=== PATIENT | male | born 2000 | race Caucasian/White ===

== ENCOUNTER 2020-07-10 19:09 | Emergency (ER) | payer MEDICAID ==
[~2020-07-10] VITALS: Ht 180.3 cm; Wt 45.0 kg
[~2020-07-10 19:09] MED LIST: AMOXICILLIN PO; EPIN0.1516 IM; RIZA10TA27 PO
[2020-07-10] MEDS ORDERED: normal saline 1000ML IV soln IVB ONE (19:25)
[2020-07-10 19:42] LABS: BASOPHILS # (AUTO) 0.1 X10'3 (0-0.2); BASOPHILS % (AUTO) 0.6 % (0-1); EOSINOPHILS % (AUTO) 0.4 % (0-6); HEMATOCRIT 38.6 % (42.0-52.0); LYMPHOCYTES # (AUTO) 1.8 X10'3 (1.1-4.8); LYMPHOCYTES % (AUTO) 18.5 % (21-51); MEAN CORPUSCULAR HEMOGLOBIN 30.7 PG (27.0-31.0); MEAN CORPUSCULAR HGB CONC 33.7 g/dL (33.0-36.5); MONOCYTES # (AUTO) 0.8 X10'3 (0-0.9); MONOCYTES % (AUTO) 8.1 % (2-12); NEUTROPHILS # (AUTO) 7.1 X10'3 (1.8-7.7); NEUTROPHILS % (AUTO) 72.4 % (42-75); PLATELET COUNT 246 X10'3 (140-440); RED BLOOD COUNT 4.24 X10'6 (4.70-6.10); RED CELL DISTRIBUTION WIDTH 13.2 % (11.5-14.5); WHITE BLOOD COUNT 9.8 X10'3 (4.5-11.0)
--- NOTE | 2020-07-10 19:58 | NUR ---
Pt is continuing to be tearful and making confused statements about "everything that is happening now was predicted by this one person! and this one person is attempting to kill me!"
[2020-07-10 19:59] VITALS: BP 149/113
--- NOTE | 2020-07-10 20:00 | NUR ---
Pt is stating "I don't know what the fuck is going on and I feel like I am leaving my body!" Pt is making statements about the virus and drug trafficking.
[2020-07-10 20:01] LABS: ALANINE AMINOTRANSFERASE 31 U/L (12-78); ALBUMIN 4.3 G/DL (3.4-5.0); ALBUMIN/GLOBULIN RATIO 1.5 (1.1-1.5); ALKALINE PHOSPHATASE 52 IU/L (20-180); ANION GAP 11 (8-16); ASPARTATE AMINO TRANSFERASE 24 U/L (10-37); BILIRUBIN,TOTAL 0.7 MG/DL (0.1-1.0); BLOOD UREA NITROGEN 17 MG/DL (7-18); BUN/CREATININE RATIO 19.8 (5.4-32.0); CALCIUM 8.3 MG/DL (8.5-10.1); CHLORIDE 108 MMOL/L (99-107); CREATINE KINASE 220 U/L (39-308); CREATININE 0.86 MG/DL (0.60-1.10); ETHANOL < 0.010 GM/DL (0.0-0.010); GLUCOSE 83 MG/DL (70-104); SODIUM 144 MMOL/L (135-145); TOTAL CARBON DIOXIDE 24.8 MMOL/L (24-32); TOTAL PROTEIN 7.1 G/DL (6.4-8.2); eGFR > 90 ML/MIN
[2020-07-10 20:07] LABS: POTASSIUM 2.8 MMOL/L (3.5-5.1)
[2020-07-10] MEDS ORDERED: potassium Cl 20 mEq SR tablet PO STA (20:21)
[2020-07-10] MEDS ORDERED: potassium Cl 10 mEq/100mL bag IV ONE (20:25)
[2020-07-10] MEDS ORDERED: LORazepam 2 mg/ml vial IV ONE (20:25)
--- NOTE | 2020-07-10 20:38 | NUR ---
He keeps going to his backpack and I entered the room, he didnt want me to see what was inside. Some pills came out. He said that they are tylenol. I did pill identifyer but am not able to identify them. They are red and oval and [id number]. Security will be called.
[2020-07-10 20:40] LABS: CLARITY,URINE SLIGHTLY CLOUDY (Clear); COLOR,URINE YELLOW (Yellow); GLUCOSE, URINE NEGATIVE (Neg); KETONES,URINE TRACE mg/dl (Neg); LEUKOCYTE ESTERASE ,URINE NEGATIVE (Neg); NITRITES, URINE NEGATIVE (Neg); OCCULT BLOOD,URINE LARGE (Neg); PH,URINE 6.5 (4.8-8.0); PROTEIN,URINE NEGATIVE (Neg); UROBILINOGEN,URINE 0.2 E.U/dL (0.2-1.0)
--- NOTE | 2020-07-10 20:41 | NUR ---
Pharmacy was called and she is not able to identify pill either. He has #7 in a baggy.
[2020-07-10 20:43] LABS: UA COLLECTION TYPE CLN CATCH MIDSTREAM
[2020-07-10 20:45] LABS: BACTERIA,URINE NONE SEEN /HPF (Neg); RBC,URINE 0-2 /HPF (0-2); WBC,URINE NONE SEEN /HPF (0-4)
[2020-07-10 20:46] LABS: SQUAMOUS EPITHELIAL CELL,UR FEW /LPF (FEW)
[2020-07-10 20:52] LABS: URINE AMPHETAMINE SCREEN POSITIVE (Neg); URINE BARBITUATE SCREEN NEGATIVE (Neg); URINE BENZODIAZEPINES SCREEN NEGATIVE (Neg); URINE CANNABINOID SCREEN NEGATIVE (Neg); URINE COCAINE SCREEN NEGATIVE (Neg); URINE METHADONE SCREEN NEGATIVE (Neg); URINE OPIATE SCREEN NEGATIVE (Neg); URINE PHENCYCLIDINE SCREEN NEGATIVE (Neg)
--- NOTE | 2020-07-10 21:23 | NUR ---
The pill has been identified as tylenol with caffeine.
--- NOTE | 2020-07-10 21:41 | NUR ---
PATIENT REFUSED ATIVAN ORDERED BY PROVIDER. PATIENT REFUSED IV POTASSIUM STATING THAT IT IS TOO PAINFUL. POTASSIUM SLOWED AND RUNNING WITH NS. PATIENT RECEIVED 40 MEQ ORAL POTASSIUM. PROVIDER AWARE OF PATIENTS REFUSAL TO CONTINUE IV ADMINISTRATION, READY FOR DISCHARGE AT THIS TIME
== END 2020-07-10 21:45 | disposition home or self-care (01) ==
LOC: ER 19:09
DX: T48.3X1A Poisoning by antitussives, accidental (unintentional), initial encounter (principal); F41.0 Panic disorder [episodic paroxysmal anxiety]; F15.10 Other stimulant abuse, uncomplicated; E87.6 Hypokalemia; Z88.8 Allergy status to other drugs, medicaments and biological substances; Z91.030 Bee allergy status; Z79.2 Long term (current) use of antibiotics; Z79.899 Other long term (current) drug therapy; Y92.89 Other specified places as the place of occurrence of the external cause
CPT/HCPCS: 36415; 80053; 80305; 80320; 81001; 82550; 85025; 93005; 96361; 96374; 99284; J3480; J7030; 96360

== ENCOUNTER 2020-08-10 08:15 | Emergency (ER) | payer MEDICAID ==
[~2020-08-10] VITALS: Ht 182.9 cm; Wt 59.1 kg
[2020-08-10 08:17] VITALS: BP 135/95
[2020-08-10] MEDS ORDERED: ibuprofen tablet 400 MG TABLET PO ONE (08:20)
== END 2020-08-10 09:25 | disposition home or self-care (01) ==
LOC: ER 08:15
DX: S93.402A Sprain of unspecified ligament of left ankle, initial encounter (principal); Z88.8 Allergy status to other drugs, medicaments and biological substances; Z79.899 Other long term (current) drug therapy; X58.XXXA Exposure to other specified factors, initial encounter; Y93.89 Activity, other specified; Y92.89 Other specified places as the place of occurrence of the external cause; Y99.8 Other external cause status
CPT/HCPCS: 73610; 99283

== ENCOUNTER 2021-01-19 23:10 | Emergency (ER) | payer MEDICAID ==
[~2021-01-19] VITALS: Ht 182.9 cm; Wt 77.3 kg
[2021-01-20 00:01] LABS: ALANINE AMINOTRANSFERASE 30 U/L (12-78); ALBUMIN 3.8 G/DL (3.4-5.0); ALKALINE PHOSPHATASE 74 IU/L (20-180); ANION GAP 11 (8-16); ASPARTATE AMINO TRANSFERASE 25 U/L (10-37); BILIRUBIN,TOTAL 0.3 MG/DL (0.1-1.0); BLOOD UREA NITROGEN 20 MG/DL (7-18); BUN/CREATININE RATIO 27.4 (5.4-32.0); CALCIUM 9.3 MG/DL (8.5-10.1); CHLORIDE 104 MMOL/L (99-107); CREATININE 0.73 MG/DL (0.60-1.10); GLUCOSE 117 MG/DL (70-104); LIPASE 139 U/L (73-393); POTASSIUM 3.7 MMOL/L (3.5-5.1); SODIUM 140 MMOL/L (135-145); TOTAL CARBON DIOXIDE 25.5 MMOL/L (24-32); TOTAL PROTEIN 7.6 G/DL (6.4-8.2); eGFR > 90 ML/MIN
[2021-01-20 00:06] LABS: BASOPHILS # (AUTO) 0.1 X10'3 (0-0.2); BASOPHILS % (AUTO) 0.7 % (0-1); EOSINOPHILS # (AUTO) 0.1 X10'3 (0-0.9); EOSINOPHILS % (AUTO) 1.4 % (0-6); HEMATOCRIT 39.1 % (42.0-52.0); HEMOGLOBIN 13.1 g/dl (14.0-17.9); LYMPHOCYTES # (AUTO) 1.8 X10'3 (1.1-4.8); LYMPHOCYTES % (AUTO) 19.4 % (21-51); MEAN CORPUSCULAR HGB CONC 33.6 g/dL (33.0-36.5); MEAN CORPUSCULAR VOLUME 89.3 FL (78-98); MEAN PLATELET VOLUME 8.9 FL (7.4-10.4); MONOCYTES # (AUTO) 0.9 X10'3 (0-0.9); NEUTROPHILS # (AUTO) 6.3 X10'3 (1.8-7.7); NEUTROPHILS % (AUTO) 68.5 % (42-75); PLATELET COUNT 297 X10'3 (140-440); RED BLOOD COUNT 4.38 X10'6 (4.70-6.10); RED CELL DISTRIBUTION WIDTH 12.8 % (11.5-14.5); WHITE BLOOD COUNT 9.2 X10'3 (4.5-11.0)
[2021-01-20] MEDS ORDERED: ALBU18HF2 INH (00:15)
[2021-01-20] MEDS ORDERED: ondansetron/PF 4mg/2ml inj IV ONE (00:20)
[2021-01-20] MEDS ORDERED: normal saline 1000ML IV soln IVB ONE (00:20)
--- NOTE | 2021-01-20 01:18 | NUR ---
pt given sandwich and chips and ate them all. Currently lying on the gurney on his right side and sleeping.
--- NOTE | 2021-01-20 01:20 | NUR ---
Dr. Moreno aware Pt has not provided urine. States ok to DC w/out urine sample.
--- NOTE | 2021-01-20 01:20 | NUR ---
Per Dr. Moreno, Pt does need the ordered zofran or liter of NS as he has tolerate the food and had no emesis and appears comfortable.
--- NOTE | 2021-01-20 01:35 | NUR ---
PT PROVIDED SNACKS, OFFERED [facility] BUT WOULD NOT TELL ME A PLACE TO BE TRANSPORTED TO FOR DISCHARGE. PT IS IN POSESSION OF APPROPRIATE CLOTHING AND HAS A TARP. STATES HE IS HOMELESS. PT SAT UP IN THE BED FOR ME BUT WOULD NOT OPEN HIS EYES AND WOULD NOT GET UP TO LEAVE FOR DC OR GET UP TO START GETTING DRESSED. ASKED MULTIPLE TIMES TO GET DRESSED AND PT WOULD NOT MOVE. SECURITY AT BEDSIDE TO ASSIST AND PT DID FOLLOW DIRECTIONS AND GOT UP AND DRESSED AND LEFT THE ER WITH ESCORT OF SECURITY, ,BUT WITHOUT INCIDENCE.
[2021-01-20 01:40] VITALS: BP 108/66
== END 2021-01-20 01:52 | disposition home or self-care (01) ==
LOC: ER 23:10
DX: R10.31 Right lower quadrant pain (principal); F15.10 Other stimulant abuse, uncomplicated; R11.0 Nausea; F11.10 Opioid abuse, uncomplicated; F17.200 Nicotine dependence, unspecified, uncomplicated; Z88.8 Allergy status to other drugs, medicaments and biological substances; Z91.030 Bee allergy status; Z79.899 Other long term (current) drug therapy
CPT/HCPCS: 36415; 74176; 80053; 83690; 85025; 99284

== ENCOUNTER 2021-01-27 09:14 | Emergency (ER) | payer MEDICAID ==
[~2021-01-27] VITALS: Ht 172.7 cm; Wt 63.6 kg
[2021-01-27 09:55] VITALS: BP 117/75
[2021-01-27] MEDS ORDERED: CEPH250T PO (10:43)
== END 2021-01-27 11:46 | disposition home or self-care (01) ==
LOC: ER 09:15
DX: L03.116 Cellulitis of left lower limb (principal); M79.672 Pain in left foot; F15.90 Other stimulant use, unspecified, uncomplicated; F11.90 Opioid use, unspecified, uncomplicated; Z59.0 Homelessness; Z88.8 Allergy status to other drugs, medicaments and biological substances; Z91.030 Bee allergy status; Z79.2 Long term (current) use of antibiotics; Z79.899 Other long term (current) drug therapy
CPT/HCPCS: 73620; 99283

== ENCOUNTER 2021-01-30 00:16 | Emergency (ER) | payer MEDICAID ==
[~2021-01-30] VITALS: Ht 180.3 cm; Wt 61.4 kg
[~2021-01-30 00:16] MED LIST changes: +CEPH250T PO
[2021-01-30 00:35] VITALS: BP 124/79
--- NOTE | 2021-01-30 01:48 | NUR ---
HX: from [place]. States his mom uses heroin. States his dad did something and is away (assuming senior living). He has siblings but they do not talk to him because he thinks dad is innocent. He is on the streets. He has only an 11 grade education. He talks to one of his sisters. He thinks he should get disability but hasn't seen any money this whole winter.
[2021-01-30] MEDS ORDERED: CEPH250T PO (02:07)
[2021-01-30] MEDS ORDERED: cephalexin 250mg capsule PO ONE (02:10)
[2021-01-30] MEDS ORDERED: ondansetron 4mg rapidly disintigrating tab PO ONE (02:10)
[2021-01-30] MEDS ORDERED: acetaminophen 325mg tablet PO ONE (02:10)
== END 2021-01-30 02:28 | disposition home or self-care (01) ==
LOC: ER 00:17
DX: L03.116 Cellulitis of left lower limb (principal); M79.672 Pain in left foot; F15.90 Other stimulant use, unspecified, uncomplicated; F11.90 Opioid use, unspecified, uncomplicated; Z59.0 Homelessness; Z88.8 Allergy status to other drugs, medicaments and biological substances; Z91.030 Bee allergy status; Z79.2 Long term (current) use of antibiotics; Z79.899 Other long term (current) drug therapy
CPT/HCPCS: 99284

== ENCOUNTER 2021-02-01 02:02 | Emergency (ER) | payer MEDICAID ==
[~2021-02-01] VITALS: Ht 177.8 cm; Wt 56.8 kg
--- NOTE | 2021-02-01 03:17 | NUR ---
pt sleepy and unable to speak clearly. Unable to communicate for assessment.
[2021-02-01] MEDS: OLANZapine 5mg rapidly disint. tablet PO ONE ×2 (04:16→04:26)
[2021-02-01] MEDS ORDERED: haloperidol lactate 5mg/ml inj IM ONE ×2 (04:20→04:40)
[2021-02-01] MEDS ORDERED: haloperidol lactate 5mg/ml inj ONE (04:21)
--- NOTE | 2021-02-01 04:32 | NUR ---
blas currently. Saying staff is trying to poison him. He had me throw away his sandwich earlier. He just picked a scab from his left cheek. Put a bandaide on it. Was able to get his bag of stuff away from him. He still has his cell phone, the battery is .
[2021-02-01 05:43] LABS: BASOPHILS # (AUTO) 0.1 X10'3 (0-0.2); EOSINOPHILS # (AUTO) 0.3 X10'3 (0-0.9); EOSINOPHILS % (AUTO) 2.5 % (0-6); HEMATOCRIT 36.7 % (42.0-52.0); HEMOGLOBIN 12.2 g/dl (14.0-17.9); LYMPHOCYTES # (AUTO) 1.4 X10'3 (1.1-4.8); LYMPHOCYTES % (AUTO) 14.2 % (21-51); MEAN CORPUSCULAR HGB CONC 33.1 g/dL (33.0-36.5); MEAN CORPUSCULAR VOLUME 90.6 FL (78-98); MEAN PLATELET VOLUME 8.6 FL (7.4-10.4); MONOCYTES # (AUTO) 0.8 X10'3 (0-0.9); NEUTROPHILS # (AUTO) 7.5 X10'3 (1.8-7.7); NEUTROPHILS % (AUTO) 74.3 % (42-75); PLATELET COUNT 336 X10'3 (140-440); RED BLOOD COUNT 4.05 X10'6 (4.70-6.10); WHITE BLOOD COUNT 10.1 X10'3 (4.5-11.0)
[2021-02-01 06:05] LABS: ALANINE AMINOTRANSFERASE 32 U/L (12-78); ALBUMIN 3.9 G/DL (3.4-5.0); ALKALINE PHOSPHATASE 74 IU/L (20-180); ANION GAP 11 (8-16); ASPARTATE AMINO TRANSFERASE 26 U/L (10-37); BILIRUBIN,TOTAL 0.7 MG/DL (0.1-1.0); BLOOD UREA NITROGEN 22 MG/DL (7-18); BUN/CREATININE RATIO 29.3 (5.4-32.0); CALCIUM 9.3 MG/DL (8.5-10.1); CHLORIDE 103 MMOL/L (99-107); CREATININE 0.75 MG/DL (0.60-1.10); GLUCOSE 144 MG/DL (70-104); SODIUM 139 MMOL/L (135-145); TOTAL CARBON DIOXIDE 25.5 MMOL/L (24-32); TOTAL PROTEIN 7.8 G/DL (6.4-8.2); eGFR > 90 ML/MIN
[2021-02-01 06:14] LABS: ETHANOL < 0.010 GM/DL (0.0-0.010)
--- NOTE | 2021-02-01 06:22 | NUR ---
Patient resting quietly, no signs/symptoms of distress
[2021-02-01] MEDS ORDERED: potassium Cl 20 mEq SR tablet PO STA (06:28)
--- NOTE | 2021-02-01 06:30 | NUR ---
K 3.[address] Segal updated, medication order placed.
[2021-02-01] MEDS ORDERED: CEPH-585 PO (07:04)
[2021-02-01] MEDS ORDERED: DOXY100C43 PO (07:04)
--- NOTE | 2021-02-01 08:54 | NUR ---
patient is still sleeping. no signs/symptoms of distress
--- NOTE | 2021-02-01 11:00 | NUR ---
Pt received from main ER back to ER overflow. Pt lying now resting in bed without complaints.
[2021-02-01 11:20] LABS: URINE AMPHETAMINE SCREEN POSITIVE (Neg); URINE BARBITUATE SCREEN NEGATIVE (Neg); URINE BENZODIAZEPINES SCREEN NEGATIVE (Neg); URINE CANNABINOID SCREEN NEGATIVE (Neg); URINE COCAINE SCREEN NEGATIVE (Neg); URINE METHADONE SCREEN NEGATIVE (Neg); URINE OPIATE SCREEN NEGATIVE (Neg); URINE PHENCYCLIDINE SCREEN NEGATIVE (Neg)
--- NOTE | 2021-02-01 13:00 | NUR ---
Pt remains sedated and is unarrousable for lunch. Pt in no apparent distress.
--- NOTE | 2021-02-01 15:00 | NUR ---
Pt remained sleeping, but was able to be arroused at 1455 and pt took K-dur and now is eating lunch.
--- NOTE | 2021-02-01 17:00 | NUR ---
After eating some lunch around 1500, pt returned to sleep. No complaints.
--- NOTE | 2021-02-01 18:30 | NUR ---
Assumed patient care. She is sleeping quietly in a prone position. Patient is in direct view from the nurses station.
--- NOTE | 2021-02-01 19:40 | NUR ---
Patient sleeps quietly on his right side in bed. No distress. He has finished his dinner.
--- NOTE | 2021-02-01 21:21 | NUR ---
[facility] attempted to evaluate this patient without success. Patient only mumbles. The plan is for [facility] to re-evaluate patient in the am when he is less sedate.
--- NOTE | 2021-02-01 21:37 | NUR ---
Patient continues to sleep well. No distress noted.
--- NOTE | 2021-02-02 00:17 | NUR ---
Patient is sleeping in a mid fowlers position. In view from nurses station. he has been self re-positiong in bed. Color is good. No s/s of resp dist.
--- NOTE | 2021-02-02 01:57 | NUR ---
Patient sleeps quietly on his right side. No s/s of any distress.
--- NOTE | 2021-02-02 04:08 | NUR ---
Patient sleeping quietly, low fowlers position in bed.
--- NOTE | 2021-02-02 06:44 | NUR ---
Received report from [facility]. Pt. sleeping supine with no distress noted. Will continue to monitor.
--- NOTE | 2021-02-02 08:16 | NUR ---
Pt sleeping supine, no distress noted. RR 16. Will continue to monitor.
--- NOTE | 2021-02-02 08:57 | NUR ---
Pt. awake sitting up at bedside eating breakfast, no distress noted. Will continue to monitor.
--- NOTE | 2021-02-02 10:52 | NUR ---
Pt sleeping supine, no distress noted. Will continue to monitor.
--- NOTE | 2021-02-02 12:50 | NUR ---
Pt. sleeping supine, lunch at bedside. No distress noted. Will continue to monitor.
--- NOTE | 2021-02-02 14:52 | NUR ---
Pt. seen by [facility], pt placed on 5150 hold. Pt sleeping on left side, no distress noted. Will continue to monitor.
[2021-02-02] MEDS ORDERED: CEPH-585 PO (16:59)
[2021-02-02] MEDS ORDERED: DOXY100C43 PO (16:59)
--- NOTE | 2021-02-02 17:26 | NUR ---
Pt. asleep supine, ABT started for left lower leg cellulitis. Left lower leg slightly red, warm, edamatous and painful to the touch. Restpadd denied pt. due to pt. having cellulitis to leg. Pt. in no distress at this time. Will continue to monitor.
--- NOTE | 2021-02-02 17:58 | NUR ---
Pt. woke up and used the restroom, pt. now up and eating dinner at his bedside. No distress noted. Will continue to monitor.
[2021-02-02] MEDS: cephalexin 250mg capsule PO SCH (20:00)
[2021-02-02] MEDS: DOXYCYCLINE 100MG CAPSULE PO SCH (20:00)
--- NOTE | 2021-02-03 00:05 | NUR ---
Patient is sleeping quietly on his right side. In view from nurses station. No s/s of distress.
--- NOTE | 2021-02-03 03:06 | NUR ---
Patient sleeps quietly, no distress.
--- NOTE | 2021-02-03 04:19 | NUR ---
Patient sleeps quietly, no distress.
--- NOTE | 2021-02-03 06:28 | NUR ---
Took over care of patient
--- NOTE | 2021-02-03 07:09 | NUR ---
Moved patietn from main ER back to ER Overflow
[2021-02-03] MEDS: cephalexin 250mg capsule PO SCH (07:46)
[2021-02-03] MEDS: DOXYCYCLINE 100MG CAPSULE PO SCH (07:47)
--- NOTE | 2021-02-03 08:29 | NUR ---
Patient ate majority of breakfsat with no problems. States he does not want to be given any more sleeping pills. Of note he was not given sleeping pills.
--- NOTE | 2021-02-03 10:13 | NUR ---
Patient is up to the restroom
[2021-02-03] MEDS ORDERED: CEPH500C2 PO (13:35)
[2021-02-03] MEDS ORDERED: DOXY100C76 PO (13:35)
== END 2021-02-03 13:45 ==
LOC: ER 02:03
DX: F22 Delusional disorders (principal); Z20.822 Contact with and (suspected) exposure to COVID-19; L03.116 Cellulitis of left lower limb; F15.90 Other stimulant use, unspecified, uncomplicated; F11.90 Opioid use, unspecified, uncomplicated; Z59.0 Homelessness; Z88.8 Allergy status to other drugs, medicaments and biological substances; Z79.899 Other long term (current) drug therapy; Z91.030 Bee allergy status
CPT/HCPCS: 36415; 80053; 80305; 80320; 84443; 85025; 87426; 96372; 99285; J1630

== ENCOUNTER 2021-04-28 07:52 | Emergency (ER) | payer MEDICAID ==
[~2021-04-28] VITALS: Ht 180.3 cm; Wt 63.2 kg
[~2021-04-28 07:52] MED LIST changes: -AMOXICILLIN PO; +CEPH-585 PO; -CEPH250T PO; +CEPH500C2 PO; +DOXY100C43 PO; +DOXY100C76 PO; -EPIN0.1516 IM; -RIZA10TA27 PO
[2021-04-28] MEDS ORDERED: naloxone 0.4 mg/ml inj IV ONE (09:20)
--- NOTE | 2021-04-28 09:44 | NUR ---
gait tested at this time, patient able to ambulate approx 200 feet without assistance, no signs of distress noted, denies dizziness. Patient was arousable via verbal stimuli but it took multiple attempts for patient to wake up completely, Dr Knox aware and agrees patient is stable for discharge.
[2021-04-28 09:45] VITALS: BP 100/58
== END 2021-04-28 09:58 | disposition home or self-care (01) ==
LOC: ER 07:53
DX: R41.82 Altered mental status, unspecified (principal); F15.10 Other stimulant abuse, uncomplicated; F11.10 Opioid abuse, uncomplicated; Z56.0 Unemployment, unspecified; Z79.899 Other long term (current) drug therapy; Z88.5 Allergy status to narcotic agent
CPT/HCPCS: 99283

== ENCOUNTER 2021-05-21 18:46 | Emergency (ER) | payer MEDICAID ==
[~2021-05-21] VITALS: Ht 175.3 cm; Wt 59.1 kg
[2021-05-21 19:15] VITALS: BP 135/85
== END 2021-05-22 02:54 | disposition left against medical advice (07) ==
LOC: ER 18:48
DX: Z00.8 Encounter for other general examination (principal); Z53.21 Procedure and treatment not carried out due to patient leaving prior to being seen by health care provider

== ENCOUNTER 2021-12-10 17:01 | Emergency (ER) | payer MEDICAID ==
[~2021-12-10] VITALS: Ht 180.3 cm; Wt 68.9 kg
[2021-12-10] MEDS ORDERED: diphenhydrAMINE 50 mg/ml inj IV ONE (17:05)
[2021-12-10] MEDS ORDERED: LORazepam 2 mg/ml vial IV ONE (17:05)
--- NOTE | 2021-12-10 17:26 | NUR ---
Patient reports jaw stiffness and neck stiffness with head "locked" at 45 degree angle toward left shoulder x 45 minutes.
[2021-12-10] MEDS ORDERED: ARIP20TA4 PO (17:33)
--- NOTE | 2021-12-10 17:40 | NUR ---
Patient's neck no longer locked to left. Patient requests "soft" food for snack; given eduardo crackers, apple sauce, and Jello.
[2021-12-10] MEDS ORDERED: DIPH25CA83 PO (17:58)
[2021-12-10 18:16] VITALS: BP 115/68
== END 2021-12-10 18:20 | disposition home or self-care (01) ==
LOC: ER 17:02
DX: R68.84 Jaw pain (principal); M54.2 Cervicalgia; F17.200 Nicotine dependence, unspecified, uncomplicated; F15.90 Other stimulant use, unspecified, uncomplicated; F11.90 Opioid use, unspecified, uncomplicated; Z59.00 Homelessness unspecified; Z88.8 Allergy status to other drugs, medicaments and biological substances; Z91.030 Bee allergy status; Z79.899 Other long term (current) drug therapy
CPT/HCPCS: 96374; 96375; 99284; J1200; J2060

== ENCOUNTER 2021-12-20 17:13 | Emergency (ER) | payer MEDICAID ==
[~2021-12-20] VITALS: Ht 180.3 cm; Wt 68.0 kg
[~2021-12-20 17:13] MED LIST changes: +ARIP20TA4 PO; -CEPH-585 PO; -CEPH500C2 PO; +DIPH25CA83 PO; -DOXY100C43 PO; -DOXY100C76 PO
[2021-12-20 17:18] VITALS: BP 104/69
[2021-12-21] MEDS ORDERED: ketorolac trometh. 30mg/ml inj. IM ONE (11:55)
== END 2021-12-21 12:33 | disposition home or self-care (01) ==
LOC: ER 17:13
DX: R51.9 Headache, unspecified (principal); H92.01 Otalgia, right ear; F15.10 Other stimulant abuse, uncomplicated; F11.10 Opioid abuse, uncomplicated; Z88.8 Allergy status to other drugs, medicaments and biological substances; Z91.030 Bee allergy status
CPT/HCPCS: 96372; 99283; J1885

== ENCOUNTER 2021-12-21 17:25 | Emergency (ER) | payer MEDICAID ==
[~2021-12-21] VITALS: Ht 180.3 cm; Wt 68.0 kg
[2021-12-21 17:33] VITALS: BP 109/59
[2021-12-21] MEDS ORDERED: levetiracetam inj 1,000 MG in normal saline 100ml IV soln 90 ML IV ONE (18:25)
[2021-12-21] MEDS ORDERED: normal saline 1000ml 1,000 ML IV ONE (18:25)
[2021-12-21 18:56] LABS: BASOPHILS # (AUTO) 0.1 X10'3 (0-0.2); BASOPHILS % (AUTO) 0.9 % (0-1); EOSINOPHILS # (AUTO) 0.1 X10'3 (0-0.9); EOSINOPHILS % (AUTO) 1.7 % (0-6); HEMATOCRIT 39.4 % (42.0-52.0); HEMOGLOBIN 13.2 g/dl (14.0-17.9); LYMPHOCYTES # (AUTO) 1.7 X10'3 (1.1-4.8); LYMPHOCYTES % (AUTO) 23.6 % (21-51); MEAN CORPUSCULAR HEMOGLOBIN 29.8 PG (27.0-31.0); MEAN CORPUSCULAR HGB CONC 33.6 g/dL (33.0-36.5); MEAN CORPUSCULAR VOLUME 88.7 FL (78-98); MEAN PLATELET VOLUME 8.3 FL (7.4-10.4); MONOCYTES # (AUTO) 0.8 X10'3 (0-0.9); MONOCYTES % (AUTO) 11.4 % (2-12); NEUTROPHILS # (AUTO) 4.4 X10'3 (1.8-7.7); NEUTROPHILS % (AUTO) 62.4 % (42-75); PLATELET COUNT 302 X10'3 (140-440); RED BLOOD COUNT 4.44 X10'6 (4.70-6.10); RED CELL DISTRIBUTION WIDTH 14.3 % (11.5-14.5)
[2021-12-21 19:16] LABS: ALANINE AMINOTRANSFERASE 24 U/L (12-78); ALBUMIN 3.9 G/DL (3.4-5.0); ALBUMIN/GLOBULIN RATIO 1.2 (1.1-1.5); ALKALINE PHOSPHATASE 74 IU/L (46-116); ANION GAP 5 (8-16); ASPARTATE AMINO TRANSFERASE 15 U/L (10-37); BILIRUBIN,TOTAL 0.5 MG/DL (0.1-1.0); BLOOD UREA NITROGEN 19 MG/DL (7-18); BUN/CREATININE RATIO 21.8 (5.4-32.0); CALCIUM 9.3 MG/DL (8.5-10.1); CHLORIDE 106 MMOL/L (99-107); CREATININE 0.87 MG/DL (0.60-1.10); GLUCOSE 107 MG/DL (70-104); POTASSIUM 3.3 MMOL/L (3.5-5.1); SODIUM 141 MMOL/L (135-145); TOTAL CARBON DIOXIDE 29.8 MMOL/L (24-32); TOTAL PROTEIN 7.2 G/DL (6.4-8.2); eGFR > 90 ML/MIN
[2021-12-21] MEDS ORDERED: acetaminophen 325mg tablet PO ONE (19:40)
[2021-12-21] MEDS ORDERED: metoclopramide 5 mg/ml inj IV ONE (19:40)
[2021-12-21] MEDS ORDERED: ketorolac trometh. 30mg/ml inj. IV ONE (19:40)
== END 2021-12-21 20:47 | disposition home or self-care (01) ==
LOC: ER 17:25
DX: R56.9 Unspecified convulsions (principal); F12.10 Cannabis abuse, uncomplicated; F11.10 Opioid abuse, uncomplicated; Z88.8 Allergy status to other drugs, medicaments and biological substances
CPT/HCPCS: 36415; 70450; 71045; 80053; 84484; 85025; 93005; 96361; 96365; 96375; 99285; J1885; J1953; J2765; J3490; J7030; 80305; 81003

== ENCOUNTER 2021-12-23 21:32 | Emergency (ER) | payer MEDICAID ==
[~2021-12-23] VITALS: Ht 180.3 cm; Wt 65.1 kg
[2021-12-23 21:40] VITALS: BP 116/77
[2021-12-23] MEDS ORDERED: CETI10TA19 PO (22:13)
== END 2021-12-23 22:34 | disposition home or self-care (01) ==
LOC: ER 21:32
DX: J30.1 Allergic rhinitis due to pollen (principal); H92.03 Otalgia, bilateral; F15.90 Other stimulant use, unspecified, uncomplicated; F11.90 Opioid use, unspecified, uncomplicated; Z59.00 Homelessness unspecified; Z88.8 Allergy status to other drugs, medicaments and biological substances; Z91.030 Bee allergy status; Z79.899 Other long term (current) drug therapy
CPT/HCPCS: 99282

== ENCOUNTER 2022-02-11 15:14 | Emergency (ER) | payer MEDICAID ==
[~2022-02-11] VITALS: Ht 180.3 cm; Wt 68.2 kg
[~2022-02-11 15:14] MED LIST changes: +CETI10TA19 PO
[2022-02-11] MEDS ORDERED: normal saline 1000ML IV soln IVB ONE ×2 (19:15→20:10)
--- NOTE | 2022-02-11 19:33 | NUR ---
food tray provided
[2022-02-11] MEDS ORDERED: potassium Cl 20 mEq SR tablet PO ONE (20:00)
[2022-02-11] MEDS ORDERED: magnesium oxide 400mg tablet PO ONE (20:00)
[2022-02-11] MEDS ORDERED: SUMAtriptan succ. 6 MG/0.5ml vial SQ ONE (20:10)
[2022-02-11] MEDS ORDERED: morphine 2 MG/ML inj. syringe IV PRN (20:10)
[2022-02-11] MEDS ORDERED: ketorolac tromethamine 15mg/ml inj. IV ONE (20:10)
--- NOTE | 2022-02-11 20:39 | NUR ---
PO MEDS X2 GIVEN SQ MED GIVEN 1000ML NACL BOLAS STARTED
--- NOTE | 2022-02-11 20:54 | NUR ---
2nd food tray provided
--- NOTE | 2022-02-11 21:40 | NUR ---
2ND 1000ML NACL BOLAS STARTED
--- NOTE | 2022-02-11 22:40 | NUR ---
PT SLEEPING AT THIS TIME, NO DISTRESS
[2022-02-11 23:05] VITALS: BP 128/64
== END 2022-02-11 23:18 | disposition home or self-care (01) ==
LOC: ER 15:17
DX: R51.9 Headache, unspecified (principal); F15.90 Other stimulant use, unspecified, uncomplicated; F11.90 Opioid use, unspecified, uncomplicated; Z91.030 Bee allergy status; Z59.00 Homelessness unspecified; Z88.8 Allergy status to other drugs, medicaments and biological substances; Z79.899 Other long term (current) drug therapy
CPT/HCPCS: 96361; 96372; 96374; 99284; J1885; J3030; J7030

== ENCOUNTER 2022-03-03 09:39 | Emergency (ER) | payer MEDICAID ==
[~2022-03-03] VITALS: Ht 175.3 cm; Wt 86.4 kg
[2022-03-03 09:54] VITALS: BP 131/64
[2022-03-03] MEDS ORDERED: acetaminophen 325mg tablet PO ONE (13:20)
== END 2022-03-03 13:44 | disposition home or self-care (01) ==
LOC: ER 09:39
DX: G43.909 Migraine, unspecified, not intractable, without status migrainosus (principal); R06.89 Other abnormalities of breathing; F15.90 Other stimulant use, unspecified, uncomplicated; F11.90 Opioid use, unspecified, uncomplicated; Z59.00 Homelessness unspecified; Z79.899 Other long term (current) drug therapy; Z91.030 Bee allergy status; Z88.8 Allergy status to other drugs, medicaments and biological substances
CPT/HCPCS: 99282